=== PATIENT | female | born 1950 ===

== ENCOUNTER 2017-09-28 00:27 | Outpatient (CLI) | payer SELFPAY ==
[2017-09-28 10:26] LABS: HEMOGLOBIN A1C 5.7 % (4.5-6.2)
[2017-09-28 10:41] LABS: CHOL/HDL RATIO 3.45 (0.00-4.99)
== END 2017-09-28 23:59 | disposition home or self-care (01) ==
LOC: HW HEART 00:27
DX: Z13.6 Encounter for screening for cardiovascular disorders (principal)
CPT/HCPCS: 36415

== ENCOUNTER 2017-10-05 06:28 | Outpatient (CLI) | payer SELFPAY | END 2017-10-05 23:59 | disposition home or self-care (01) | LOC: HW VAS 06:28 | DX: Z13.6 Encounter for screening for cardiovascular disorders (principal) ==